=== PATIENT | male | born 1975 | race Caucasian/White ===

== ENCOUNTER 2017-02-01 13:21 | Emergency (ER) | payer OTHER ==
[~2017-02-01] VITALS: Ht 165.1 cm; Wt 58.4 kg
[2017-02-01 13:30] VITALS: TEMP 36.8; Ht 165.1 cm; Wt 58.4 kg
[2017-02-01] MEDS ORDERED: TRAMADOL HCL 50 MG TAB PO STA (13:39)
[2017-02-01] MEDS ORDERED: IBUPROFEN 800 MG TAB PO STA (13:39)
[2017-02-01] MEDS ORDERED: XYLOCAINE 1%/SOD BICARB 20 ML VIAL INFIL ONE (13:45)
[2017-02-01] MEDS ORDERED: CEPHALEXIN MONOHYDRATE 250 MG CAP PO ONE (13:45)
[2017-02-01] MEDS ORDERED: CEPH500C PO (14:39)
[2017-02-01] MEDS ORDERED: TRAM-10 PO (14:39)
--- NOTE | 2017-02-01 14:47 | EMERGENCY ROOM VISIT NOTE ---
History First contact with patient: 13:32 Chief Complaint: LACERATION/CUT (SUT/DERMABOND) Stated Complaint: LACERATION Nursing Triage Summary: c shaped laceration to L anterior wrist History of Present Illness The patient is a 42 year old male who presents to the Emergency Room with complaints of a laceration to his left wrist at work this morning. He reports accidentally stepping on a piece of metal that swung up and cut his wrist. The patient immediately applied a pressure dressing. The patient is right-hand- dominant. Tetanus immunization is up-to-date. He rates his discomfort a 7 out of 10. He denies any paresthesias or numbness of the left hand or fingers. Review of Systems 10 system review was performed and was negative except for pertinent positives and negatives as indicated in history of present illness Past Medical/Surgical History Medical Problems: (1) Tobacco use disorder Surgical Problems: (1) No history of previous surgery Family History Unremarkable Social History Smoking Status: Current Every Day Smoker Alcohol Use: occasionally Marital Status: Housing Status: lives with family Occupation Status: employed Current/Historical Medications Scheduled Cephalexin Monohydrate (Keflex), 500 MG PO QID Scheduled PRN Tramadol (Ultram), 1-2 TAB PO Q4H PRN for Pain Allergies Coded Allergies: Penicillins (Unverified Allergy, Unknown, unknown, 02/01/17) Physical Exam Vital Signs Date Time Temp Pulse Resp B/P Pulse Ox O2 Delivery O2 Flow Rate FiO2 02/01/17 13:30 36.8 75 18 128/81 97 Room Air Physical Exam CONSTITUTIONAL: Healthy and well nourished. Alert and oriented X 3 with positive affect. HEENT: Normocephalic, atraumatic. Pupils equal, round and reactive. NECK: Full active range of motion without discomfort. MUSCULOSKELETAL: Examination shows a transverse 4 cm laceration across the radial aspect of the wrist. No active bleeding is noted. Does appear to be too flexor tendon lacerations near the radial aspect of the wrist. They move with flexion and extension of the thumb and index finger. Capillary refill of the fingers is less than 2 seconds. INTEGUMENTARY: No rash or other significant dermatologic conditions noted. NEUROLOGIC: Left hand and fingers are sensory intact. Medical Decision & Procedures Medications Administered Medications (Trade) Dose Ordered Sig/Toyin Route Start Time Stop Time Status Last Admin Dose Admin Lidocaine HCl (Buffered Lidocaine 1% Inj) 20 ml ONE ONCE INFIL 02/01/17 13:45 02/01/17 13:46 DC 02/01/17 13:51 20 ML Cephalexin Monohydrate (Keflex Cap) 500 mg NOW ONCE PO 02/01/17 13:45 02/01/17 13:46 DC 02/01/17 13:45 500 MG Tramadol HCl (Ultram Tab) 50 mg ONE STAT PO 02/01/17 13:39 02/01/17 13:41 DC 02/01/17 13:53 50 MG Ibuprofen (Motrin Tab) 800 mg NOW STAT PO 02/01/17 13:39 02/01/17 13:41 DC 02/01/17 13:51 800 MG Procedure Patient provided verbal consent for laceration evaluation under local anesthesia. Using buffered 1% lidocaine without epinephrine, good local anesthesia was administered. The peripheral tissue was enclosed with iodine and allowed to dry. The wound was then irrigated with 500 mL of normal saline. In sterile fashion, exploration of the wound shows what appears to be lacerations to the flexor pollicis longus and flexor carpi radialis. The wound was then grossly approximated using 4-0 nylon simple interrupted sutures. An Ortho-Glass splint with hand in position of function was applied. ED Course Patient history and physical exam were performed. Nurse's notes were reviewed. Vital signs were reviewed and were normal. The patient was administered ibuprofen, Ultram and Keflex. Wound evaluation and closure were performed under digital block anesthesia. The patient was discovered to have flexor tendon lacerations. The patient will be placed in a volar Ortho-Glass splint in position of function, and referred to Dr. Macdonald, hand surgeon for further management. The patient was encouraged to intermittently apply ice and elevate the hand for swelling and pain. Ibuprofen and Tylenol in alternating fashion for baseline pain relief. The patient did received prescriptions for Keflex and Ultram. The patient denied any pain at the time of discharge, and was happy with plan of care. Impression Primary Impression: Laceration of left wrist Additional Impression: Work related injury Departure Information Dispostion Home / Self-Care Prescriptions Tramadol (Ultram) 50 Mg Tab 1-2 TAB PO Q4H Y for Pain, #20 TAB For Initial Treatment Prov: Kanu Kimball PA 02/01/17 Cephalexin Monohydrate (Keflex) 500 Mg Cap 500 MG PO QID, #28 CAP Prov: Kanu Kimball PA 02/01/17 Referrals No Doctor, Assigned Cristian Shaver M.D. (PCP) Brendan Macdonald MD Forms HOME CARE DOCUMENTATION FORM, IMPORTANT VISIT INFORMATION Patient Instructions [facility] Additional Instructions Complete all Keflex antibiotics as prescribed. Do not remove splint until reevaluated by orthopedics. Call [facility] (Dr. Macdonald) for further evaluation. Tell them that you cut the wrist and have flexor tendon lacerations. Ibuprofen 800 mg and/or Tylenol 1000 mg every 8 hours. You may also alternate these medications for more effective pain relief: Ibuprofen --4 HRS--> Tylenol --4 HRS--> ibuprofen --4 HRS--> Tylenol .... Ultram if needed for worse pain. Problem Qualifiers Primary Impression: Laceration of left wrist Encounter type: initial encounter Qualified Codes: S61.512A - Laceration without foreign body of left wrist, initial encounter
[2017-02-01 15:07] VITALS: BP 107/65; PULSE 64; O2SAT 98
== END 2017-02-01 15:08 | disposition home or self-care (01) ==
LOC: C.EDB 13:24 → C.EDD 15:08
DX: S61.512A Laceration without foreign body of left wrist, initial encounter (principal); W22.8XXA Striking against or struck by other objects, initial encounter; Y92.89 Other specified places as the place of occurrence of the external cause; Y99.0 Civilian activity done for income or pay; F17.200 Nicotine dependence, unspecified, uncomplicated; Z88.0 Allergy status to penicillin